=== PATIENT | male | born 2000 | race American Indian/Alaskan Native ===

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

== ENCOUNTER 2022-05-20 22:35 | Emergency (ER) | payer MEDICAID, OTHER ==
[2022-05-20] MEDS ORDERED: Acetaminophen/HYDROcodone 325-5 MG Tab PO ONE (22:36)
[2022-05-20 23:00] VITALS: BP 141/79; PULSE 99
[2022-05-20] MEDS ORDERED: Amoxicillin 500 MG Cap PO ONE (23:01)
[2022-05-20] MEDS ORDERED: Acetaminophen/HYDROcodone 325-5 MG Tab ONE (23:15)
== END 2022-05-20 23:28 | disposition home or self-care (01) ==
LOC: DL.ED 22:35
DX: H66.002 Acute suppurative otitis media without spontaneous rupture of ear drum, left ear (principal); Z88.0 Allergy status to penicillin
CPT/HCPCS: 99282; A9270